=== PATIENT | male | born 1980 | race African-American/Black ===

== ENCOUNTER 2021-03-24 03:17 | Emergency (ER) | payer OTHER ==
[~2021-03-24] VITALS: Ht 157.5 cm; Wt 54.6 kg
[2021-03-24 04:18] VITALS: BP 98/59
--- NOTE | 2021-03-24 04:20 | PHYS DOC ---
General Adult EDM: Chief Complaint: OTHER COMPLAINTS HPI: HPI: Patient is a 41 year old male with past medical history of CVA presents for care facility for evaluation of hypoxia. Per ems patient with 87% on room air. Xray performed earlier in the day showed atelectasis. Patient had a Covid rapid which was negative. Care facility called 911 to have patient evaluated in the emergency department. EMS had patient on 2 L nasal cannula with oxygen saturation of 100%. While in the department oxygen was removed and patient maintained an O2 sat of 100% on room air. Patient does have clear nasal drainage. Patient lungs are clear on exam. Review of Systems: Review of Systems: Nonverbal unable to obtain history due to medical condition Heart Score: C/O Chest Pain: N/A Risk Factors: Risk Factors: DM, Current or recent (<one month) smoker, HTN, HLP, family history of CAD, obesity. Risk Scores: Score 0 - 3: 2.5% MACE over next 6 weeks - Discharge Home Score 4 - 6: 20.3% MACE over next 6 weeks - Admit for Clinical Observation Score 7 - 10: 72.7% MACE over next 6 weeks - Early Invasive Strategies Allergies: Allergies: Allergies Coded Allergies Type Severity Reaction Last Updated Verified No Known Drug Allergies 03/24/21 No Physical Exam: PE: General: alert, no acute distress. Skin: warm, dry and intact, no erythema, no rash. HENT: bilateral external ears normal, oropharynx moist, nose normal. Head:: Normocephalic, atraumatic. Neck: Trachea midline. Eyes: EOMI, Normal conjunctiva, No drainage CARDIOVASCULAR: Tachycardia RESPIRATORY: No respiratory distress, lungs clear bilateral Back: Full range of motion. MUSCULOSKELETAL: Full range of motion of bilateral upper and lower extremities. GASTROINTESTINAL: Abdomen soft without rebound or guarding. Feeding tube in place NEUROLOGICAL: Alert EKG: EKG: [] Radiology/Procedures: Radiology/Procedures: [] Impression: Wet read Chest Xray no focal infiltrate. Course & Med Decision Making: Course & Med Decision Making Pertinent Labs and Imaging studies reviewed. (See chart for details) Patient observed. 100% on room air. Wet read no large focal infiltarte. COvid negative at facility. Will Rx patient on zithromax. Dragon Disclaimer: Vivian Disclaimer: This electronic medical record was generated, in whole or in part, using a voice recognition dictation system. Departure Departure Impression: Primary Impression: Shortness of breath Additional Impression: Bronchitis Disposition: HOME / SELF CARE / HOMELESS Condition: STABLE Referrals: DANNIELLE NGUYEN MD, [facility] (PCP) Patient Instructions: Acute Bronchitis Scripts Azithromycin (ZITHROMAX) 250 Mg Tablet 1 PKG PO UD, #6 TAB Prov: PRINCESS BURNETT DO 03/24/21 PRINCESS BURNETT DO Mar 24, 2021 04:20
[2021-03-24] MEDS ORDERED: AZIT250T PO (05:46)
--- NOTE | 2021-03-24 08:24 | RAD ---
XR CHEST 1V INDICATION: Reason: sob / Spl. Instructions: / History: . COMPARISON STUDY: None. FINDINGS: Lungs: Normal lung volume. Patchy bilateral opacities. Pleura: No pleural effusion or pneumothorax. Heart and Mediastinum: The cardiomediastinal silhouette is normal. The great vessels of the thorax ar e normal. IMPRESSION: Patchy bilateral opacities, concerning for multifocal infection. Electronically signed by: Maco Phelps MD (03/24/2021 8:22 AM) [id number]
== END 2021-03-24 06:10 | disposition home or self-care (01) ==
LOC: ER 03:17
DX: J40 Bronchitis, not specified as acute or chronic (principal); R06.02 Shortness of breath; Z86.73 Personal history of transient ischemic attack (TIA), and cerebral infarction without residual deficits
CPT/HCPCS: 71045; 99283